=== PATIENT | female | born 1980 | race Two or more races ===

== ENCOUNTER 2023-06-14 15:57 | Emergency (ER) | payer MEDICAID, OTHER ==
[~2023-06-14] VITALS: Ht 167.6 cm; Wt 87.0 kg
[2023-06-14 18:51] VITALS: BP 125/75; PULSE 72; RESP 16; TEMP 97.5; O2SAT 100
== END 2023-06-14 20:25 | disposition home or self-care (01) ==
LOC: ER 15:57
DX: G47.00 Insomnia, unspecified (principal); R51.9 Headache, unspecified